=== PATIENT | male | born 1955 | race African-American/Black ===

== ENCOUNTER 2017-02-26 08:17 | Emergency (ER) | payer MEDICAID ==
[~2017-02-26] VITALS: Ht 175.3 cm; Wt 60.0 kg
[~2017-02-26 08:17] MED LIST: ALBUTEROL INHALER; BENADRYL; NORCO; TRAMADOL
[2017-02-26 08:22] VITALS: BP 119/65
== END 2017-02-26 10:01 | disposition home or self-care (01) ==
LOC: ER 09:34
DX: M25.50 Pain in unspecified joint (principal); M79.645 Pain in left finger(s); M25.551 Pain in right hip; M25.552 Pain in left hip; M25.561 Pain in right knee; M25.562 Pain in left knee; J45.909 Unspecified asthma, uncomplicated; F12.10 Cannabis abuse, uncomplicated; F15.10 Other stimulant abuse, uncomplicated; F17.200 Nicotine dependence, unspecified, uncomplicated
CPT/HCPCS: 99283

== ENCOUNTER 2017-04-15 08:18 | Emergency (ER) | payer MEDICAID ==
[~2017-04-15] VITALS: Ht 180.3 cm; Wt 59.0 kg
[2017-04-15] MEDS ORDERED: ACETAMINOPHEN WITH CODEINE 300/30MG TABLET PO ONE (10:00)
[2017-04-15 10:24] VITALS: BP 121/77
== END 2017-04-15 10:25 | disposition home or self-care (01) ==
LOC: ER 08:50
DX: M54.9 Dorsalgia, unspecified (principal); R35.0 Frequency of micturition; F17.210 Nicotine dependence, cigarettes, uncomplicated; F12.10 Cannabis abuse, uncomplicated; F15.10 Other stimulant abuse, uncomplicated; J45.909 Unspecified asthma, uncomplicated; N40.0 Benign prostatic hyperplasia without lower urinary tract symptoms; Z88.6 Allergy status to analgesic agent
CPT/HCPCS: 99282

== ENCOUNTER 2017-05-11 18:16 | Emergency (ER) | payer MEDICAID ==
[~2017-05-11] VITALS: Ht 180.3 cm; Wt 59.0 kg
[2017-05-11] MEDS ORDERED: TRAMADOL 50MG TABLET PO ONE (18:45)
[2017-05-11 19:38] VITALS: BP 161/83
== END 2017-05-11 19:47 | disposition home or self-care (01) ==
LOC: ER 18:17
DX: M54.5 Low back pain (principal); G89.29 Other chronic pain; I10 Essential (primary) hypertension; F15.10 Other stimulant abuse, uncomplicated; F10.10 Alcohol abuse, uncomplicated; J45.909 Unspecified asthma, uncomplicated; F17.210 Nicotine dependence, cigarettes, uncomplicated; Y90.9 Presence of alcohol in blood, level not specified
CPT/HCPCS: 99283